=== PATIENT | male | born 1965 | race Caucasian/White ===

== ENCOUNTER 2025-08-09 16:38 | Emergency (ER) | payer BC, SELFPAY ==
[2025-08-09 16:47] VITALS: BP 144/81; PULSE 69; TEMP 36.9; O2SAT 99; BMI 27.6
--- NOTE | 2025-08-09 17:10 | ED.HEATRA1 ---
HPI HPI - Head Injury General Chief complaint: Head Injury Stated complaint: Head Injury Time Seen by Provider: 08/09/25 17:01 Source: patient Mode of arrival: walk-in History of Present Illness HPI Narrative: cc - scalp laceration and head injury Patient was removing a tree stump at his house and the tool he was using got caught in a tree branch and he accidentally stuck himself on the top of the head. He sustained a laceration to the scalp. He cleaned it off and bleeding was controlled but when his spouse saw the size of the large laceration she made him come to the ED for evaluation. He initially had a headache but none now. No LOC and no seizures, vomiting or visual changes. He denies any concussive symptoms Related Data Home Medications ?Medication ?Instructions ?Recorded ?Confirmed anastrozole 1 mg tablet 0.5 mg PO .2 times a wk 08/09/25 08/09/25 clomiphene citrate 50 mg tablet 25 mg PO .3 times a wk 08/09/25 08/09/25 famotidine 40 mg tablet 40 mg PO QPM 08/09/25 08/09/25 liothyronine 5 mcg tablet 7.5 mcg PO .daily 08/09/25 08/09/25 nabumetone 750 mg tablet 750 mg PO BID PRN muscle spasm 08/09/25 08/09/25 sildenafil (pulm.hypertension) 20 mg 08/09/25 mg tablet Allergies Allergy/AdvReac Type Severity Reaction Status Date / Time No Known Drug Allergies Allergy Verified 08/09/25 16:51 PFSH PFSH Social History Little interest or pleasure in doing things: not at all Feeling down, depressed, or hopeless: not at all Exam Narrative Exam Narrative: Nurses note and vital signs reviewed and patient is not hypoxic. afebrile General: The patient appears well and in no apparent distress. Patient is resting comfortably on cart. GCS = 15. Skin: Warm, dry, no pallor noted. Head: 6 cm curved shallow laceration noted to the top of the scalp. Remainder of the face and scalp and head are normocephalic, atraumatic Neck: Supple, trachea mid-line, no tenderness, no lymphadenopathy. Full ROM and no cervical spinal tenderness. The patient has no step-offs or crepitus noted Eyes: PERRLA, EOMI ENT: No facial or oral injury Cardiovascular: Regular Rate and Rhythm Respiratory: Patient is in no distress, no accessory muscle use, lungs are clear to auscultation, no wheezing, rales or rhonchi Back: No thoracic vertebral vertebral tenderness to palpation. Musculoskeletal: Moves all four extremities in all modalities with back to strength. 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 Psychiatric: Cooperative Constitutional Vital Signs, click to edit/add: Last Vital Signs Temp 98.5 F 08/09/25 16:47 Pulse 69 08/09/25 16:47 Resp 18 08/09/25 16:47 BP 144/81 H 08/09/25 16:47 Pulse Ox 99 08/09/25 16:47 O2 Del Method Room Air 08/09/25 16:47 Course Vital Signs Vital signs: Vital Signs Temperature 98.5 F 08/09/25 16:47 Pulse Rate 69 08/09/25 16:47 Respiratory Rate 18 08/09/25 16:47 Blood Pressure 144/81 H 08/09/25 16:47 Pulse Oximetry 99 08/09/25 16:47 Oxygen Delivery Method Room Air 08/09/25 16:47 Temperature 98.5 F 08/09/25 16:47 Pulse Rate 69 08/09/25 16:47 Respiratory Rate 18 08/09/25 16:47 Blood Pressure 144/81 H 08/09/25 16:47 Pulse Oximetry 99 08/09/25 16:47 Oxygen Delivery Method Room Air 08/09/25 16:47 MDM - Head Injury MDM Narrative Medical decision making narrative: Patient's tetanus was updated. Laceration repair:All of the procedure was done under sterile conditions.Wound cleansed with betadine and anesthetized with local injection of approximately 5mL of lidocaine 1% with/without epinephrine.The wound was irrigated copiously with sterile normal saline.The wound was explored to depth and found to be free of foreign material.The laceration wound edges were well-approximated and did not require revision.Wound closed with 7 sterile monalisa. Patient tolerated the procedure well.The patient was neurovascularly intact post-repair.Topical bacitracin applied to the laceration and it was dressed with a dry sterile dressing.The patient will need to follow-up in the next 7-10 days for removal. Discharge Plan Discharge Chief Complaint: Head Injury Clinical Impression: Laceration of scalp, Head injury Patient Disposition: Home, Self-Care Time of Disposition Decision: 17:16 Prescriptions / Home Meds: No Action anastrozole 1 mg tablet 0.5 mg PO .2 times a wk Patient Comments: mon and fri clomiphene citrate 50 mg tablet 25 mg PO .3 times a wk famotidine 40 mg tablet 40 mg PO QPM liothyronine 5 mcg tablet 7.5 mcg PO .daily Patient Comments: nad 1 full tablet at 4pm nabumetone 750 mg tablet 750 mg PO BID PRN (Reason: muscle spasm) sildenafil (pulm.hypertension) 20 mg tablet Print Language: Pashto Instructions: Laceration (ED), Head Injury (ED) Referrals: YULISSA KWON [Primary Care Provider, Family Practice] - 1 week
[2025-08-09] MEDS: LIDOCAINE HCL 1%-EPINEPHRINE 1:100,000 20 ML MDV INJ (17:46)
[2025-08-09] MEDS: DIPHTH,PERTUSS(ACELL),TET VAC 0.5 ML SYRINGE IM (17:46)
== END 2025-08-09 18:23 | disposition home or self-care (01) ==
PROVIDERS: Emergency Provider Emergency Medicine; PCP Family Medicine
DX: S01.01XA Laceration without foreign body of scalp, initial encounter (principal); W22.8XXA Striking against or struck by other objects, initial encounter; S09.90XA Unspecified injury of head, initial encounter; Z23 Encounter for immunization
CPT/HCPCS: 12002; 90471; 90715; 99284